=== PATIENT | male | born 1955 | race Caucasian/White ===

== ENCOUNTER 2016-08-19 06:13 | Day surgery (SDC) | payer BC ==
--- NOTE | ~2016-08-19 | EGD ---
EGD REPORT [facility] [address] [id number] NAME: NICKY FAJARDO : 59 [place]US : [place] [facility] [place] PAT#: [id number] AGE: 61 ADM/REG DATE : 08/19/16 MR#: [id number] REPORT SERV DATE: 08/19/16 DICTATED BY: JUN SILVEIRA DATE: 08/19/16 REPORT STATUS : Draft TRANS[facility]IBED BY: [facility] DATE: 08/19/16 End[facility] Center Patient Name: Nicky Fajardo Date of : 1955 Attending MD: RADHA SILVEIRA MD Procedure Date No Time: 08/19/2016 Procedure: Colonoscopy Indications: Screening for colorectal malignant neoplasm, Last colonoscopy: 2006 Referring MD: MIKE BANDA MD Medicines: See the Anesthesia note for documentation of the administered medications Complications: No immediate complications. Estimated blood loss: None. Procedure: Pre-Anesthesia Assessment: - ASA Grade Assessment: III - A patient with severe systemic disease. - Prior to the procedure, a History and Physical was performed, and patient medications and allergies were reviewed. The patient's tolerance of previous anesthesia was also reviewed. The risks and benefits of the procedure and the sedation options and risks were discussed with the patient. All questions were answered, and informed consent was obtained. Prior Anticoagulants: The patient has taken no previous anticoagulant or antiplatelet agents. After reviewing the risks and benefits, the patient was deemed in satisfactory condition to undergo the procedure. After I obtained informed consent, the scope was passed under direct vision. Throughout the procedure, the patient's blood pressure, pulse, and oxygen saturations were monitored continuously. The PCF [id number] was introduced through the anus and advanced to the cecum, identified by appendiceal orifice and ileocecal valve. The ileocecal valve, appendiceal orifice and rectum were photographed. The entire colon was examined. The colonoscopy was performed without difficulty. The patient tolerated the procedure well. The quality of the bowel preparation was fair. Findings: The perianal and digital rectal examinations were normal. The colon (entire examined portion) revealed moderately excessive looping. Non-bleeding internal hemorrhoids were found during retroflexion and were Grade I (internal hemorrhoids that do not prolapse). EGD REPORT [address] [address] NAME: NICKY FAJARDO : [birth year] [place]US : [place] [facility] [place] PAT#: [id number] AGE: 61 ADM/REG DATE : 08/19/16 MR#: [id number] REPORT SERV DATE: 08/19/16 DICTATED BY: JUN SILVEIRA DATE: 08/19/16 REPORT STATUS : Draft TRANSCRIBED BY: [employer] DATE: 08/19/16 No other significant abnormalities were identified in a careful examination of the remainder of the colon. Impression: - There was significant looping of the colon. - Non-bleeding internal hemorrhoids. Recommendation: - Patient has a contact number available for emergencies. The signs and symptoms of potential delayed complications were discussed with the patient. Return to normal activities tomorrow. Written discharge instructions were provided to the patient. - Regular diet. - Discharge patient to home. - Continue present medications. - Repeat colonoscopy in 10 years for surveillance. Procedure Code(s): --- Professional --- 08042, Colonoscopy, flexible, proximal to splenic flexure; diagnostic, with or without collection of specimen(s) by brushing or washing, with or without colon decompression (separate procedure) Diagnosis Code(s): --- Professional --- K64.0, First degree hemorrhoids Z12.11, Encounter for screening for malignant neoplasm of colon CPT copyright 2013 [employer]. All rights reserved. The codes documented in this report are preliminary and upon transcription specialist review may be revised to meet current compliance requirements. RADHA SILVEIRA MD 08/19/2016 8:34 AM This report has been signed electronically. Number of Addenda: 0 Note Initiated On: 08/19/2016 7:59 AM Scope Withdrawal Time 0 hours 9 minutes 34 seconds [address] [id number]
[~2016-08-19 06:13] MED LIST: ABILIFY15 PO; AMB10 PO; COZ50 PO; GLUCOPHAGE1000 MG PO; HALF81 PO; HYDROCHLOROT25 MG PO; LAMICTAL200 MG PO; LIPITOR40 PO; LOP25 PO; NEXIUM40 PO; OXAPROZIN600 MG PO; PRIN20 PO; PROTONIX PO; VALTURN1 PO; VALTURNA; VYVANSE60 MG OR; [UNRECOGNIZED DRUG - OTHER]
== END 2016-08-19 23:59 | disposition home or self-care (01) ==
LOC: DMU 06:13
PROVIDERS: Internal Medicine Gastroenterology
PROC: 0DJD8ZZ Inspection of Lower Intestinal Tract, Via Natural or Artificial Opening Endoscopic (ICD-10-PCS; principal; 2016-08-19 08:00)
DX: Z12.11 Encounter for screening for malignant neoplasm of colon (principal); K64.0 First degree hemorrhoids; K56.2 Volvulus; I10 Essential (primary) hypertension; E11.9 Type 2 diabetes mellitus without complications; Z79.84 Long term (current) use of oral hypoglycemic drugs; Z79.899 Other long term (current) drug therapy
CPT/HCPCS: 82962